=== PATIENT | female | born 1970 | race Caucasian/White ===

== ENCOUNTER 2017-01-02 19:38 | Emergency (ER) | payer OTHER, MEDICAID ==
[~2017-01-02] VITALS: Ht 167.6 cm; Wt 73.0 kg
[~2017-01-02 19:38] MED LIST: INSU100C SC; LANT3I SC; MECL25TA2 PO
[2017-01-02 20:33] VITALS: Ht 167.6 cm; Wt 73.0 kg
[2017-01-02 22:38] LABS: BASOPHILS % 0.3 % (0.0-2.0); EOSINOPHILS # 0.1 10^3/ul (0.0-0.5); EOSINOPHILS % 1.2 % (0.0-7.0); HEMATOCRIT 35.4 % (37.0-47.0); HEMOGLOBIN 11.9 g/dl (12.0-16.0); LYMPHOCYTES # 2.3 10^3/ul (0.8-2.9); LYMPHOCYTES % 31.2 % (15.0-51.0); MEAN CORPUSCULAR HEMOGLOBIN 28.9 pg (29.0-33.0); MEAN CORPUSCULAR HGB CONC 33.6 g/dl (32.0-37.0); MEAN CORPUSCULAR VOLUME 85.9 fl (82.0-101.0); MEAN PLATELET VOLUME 10.3 fl (7.4-10.4); MONOCYTE # 0.6 10^3/ul (0.3-0.9); MONOCYTES % 8.7 % (0.0-11.0); NEUTROPHIL # 4.2 10^3/ul (1.6-7.5); NEUTROPHILS % 58.5 % (39.0-77.0); PLATELET COUNT 300 10^3/UL (140-415); RED BLOOD COUNT 4.12 10^6/ul (4.20-5.40); RED CELL DISTRIBUTION WIDTH 13.6 % (11.5-14.5); WHITE BLOOD COUNT 7.2 10^3/ul (4.8-10.8)
[2017-01-02] MEDS ORDERED: IBUPROFEN 600 MG TAB PO ONE (23:00)
[2017-01-02 23:01] LABS: ADD UMIC NO; UR ASCORBIC ACID NEGATIVE (NEGATIVE); UR BILIRUBIN (Dip) NEGATIVE (NEGATIVE); UR BLOOD (Dip) NEGATIVE (NEGATIVE); UR CLARITY CLEAR (CLEAR); UR COLOR COLORLESS (YELLOW); UR GLUCOSE (Dip) 3+ mg/dL (NEGATIVE); UR KETONES (Dip) NEGATIVE (NEGATIVE); UR LEUKOCYTE ESTERASE (Dip) NEGATIVE Leu/ul (NEGATIVE); UR NITRITE (Dip) NEGATIVE (NEGATIVE); UR SPECIFIC GRAVITY (Dip) 1.017 (1.003-1.030); UR TOTAL PROTEIN (Dip) NEGATIVE (NEGATIVE); UR UROBILINOGEN (Dip) NEGATIVE (NEGATIVE)
[2017-01-02 23:03] LABS: ALBUMIN 3.8 g/dl (3.3-4.9); ALBUMIN/GLOBULIN RATIO 1.15; BILIRUBIN,INDIRECT 0.3 mg/dl (0-1.1); BILIRUBIN,TOTAL 0.3 mg/dl (0.2-1.3); CALCIUM 9.4 mg/dl (8.4-10.2); CREATININE 0.71 mg/dl (0.44-1.00); POTASSIUM 3.8 mmol/L (3.5-5.1); TOTAL PROTEIN 7.1 g/dl (6.1-8.1)
[2017-01-02] MEDS ORDERED: SOD CHLORIDE 0.9% 1,000 ML IV ONE (23:30)
[2017-01-03 01:15] VITALS: BP 144/80; PULSE 80; RESP 16
--- NOTE | 2017-01-03 01:28 | ERD ---
ER Documentation Chief Complaint Date/Time DATE: 01/03/17 TIME: 01:27 Chief Complaint weakness x 3 days, intermittent ROSEN today. Denies other symptoms HPI Patient is a 46-year-old female past medical history of insulin-dependent diabetes type 2, Presenting to the emergency department with complaints of weakness intermittently for the past 3 days. Associated symptoms include headache when she is to experience today. She also feels dizziness which lasts approximately 2 minutes and then spontaneously resolves. She has had history of the same in the past. She denies nausea, vomiting, diarrhea, chest pain, fevers, shortness of breath, or other symptoms currently. ROS All systems reviewed and are negative except as per history of present illness. Medications Home Meds Active Scripts Meclizine Hcl* (Antivert*) 25 Mg Tablet, 25 MG PO Q6H Y for dizziness, #20 TAB Prov:ALBER PADRON PA-C 04/14/15 Reported Medications Insulin Glargine* (Lantus*) 100 Unit/Ml Soln, 30 UNIT SC BID, EA 12/17/13 Insulin Lispro (Humalog) 100 U/Ml Cartridge, 17 UNITS SC TID, EA 12/17/13 Allergies Allergies: Coded Allergies: No Known Allergy (Verified , 04/14/15) PMhx/Soc History of Surgery: Yes (eye surgery, ) Anesthesia Reaction: No Hx Neurological Disorder: No Hx Respiratory Disorders: No Hx Cardiac Disorders: No Hx Psychiatric Problems: No Hx Miscellaneous Medical Probl: Yes (DM) Hx Alcohol Use: No Hx Substance Use: No Hx Tobacco Use: No Smoking Status: Never smoker Physical Exam Vitals Vital Signs Date Time Temp Pulse Resp B/P Pulse Ox O2 Delivery O2 Flow Rate FiO2 01/03/17 01:15 80 16 144/80 97 Room Air 01/02/17 20:33 99.1 102 18 148/82 98 Physical Exam Const: Nontoxic, well-appearing female in no acute distress. Head: Atraumatic Eyes: Normal Conjunctiva ENT: Normal External Ears, Nose and Mouth. Neck: Full range of motion..~ No meningismus. Resp: Clear to auscultation bilaterally Cardio: Regular rate and rhythm, no murmurs Abd: Soft, non tender, non distended. Normal bowel sounds Skin: No petechiae or rashes Back: No midline or flank tenderness Ext: No cyanosis, or edema Neur: Awake and alert Psych: Normal Mood and Affect Result Diagram: 01/02/17222501/02/172225 Results 24 hrs Laboratory Tests Test 01/02/17 22:26 01/02/17 22:39 01/03/17 00:38 White Blood Count 7.210^3/ul Red Blood Count 4.1210^6/ul Hemoglobin 11.9g/dl Hematocrit 35.4% Mean Corpuscular Volume 85.9fl Mean Corpuscular Hemoglobin 28.9pg Mean Corpuscular Hemoglobin Concent 33.6g/dl Red Cell Distribution Width 13.6% Platelet Count 01008^3/UL Mean Platelet Volume 10.3fl Neutrophils % 58.5% Lymphocytes % 31.2% Monocytes % 8.7% Eosinophils % 1.2% Basophils % 0.3% Nucleated Red Blood Cells % 0.0/100WBC Neutrophils # 4.210^3/ul Lymphocytes # 2.310^3/ul Monocytes # 0.610^3/ul Eosinophils # 0.110^3/ul Basophils # 0.010^3/ul Nucleated Red Blood Cells # 0.010^3/ul Sodium Level 132mmol/L Potassium Level 3.8mmol/L Chloride Level 97mmol/L Carbon Dioxide Level 27mmol/L Anion Gap 12 Blood Urea Nitrogen 18mg/dl Creatinine 0.71mg/dl Glucose Level 433mg/dl Calcium Level 9.4mg/dl Total Bilirubin 0.3mg/dl Direct Bilirubin 0.00mg/dl Indirect Bilirubin 0.3mg/dl Aspartate Amino Transf (AST/SGOT) 20IU/L Alanine Aminotransferase (ALT/SGPT) 33IU/L Alkaline Phosphatase 85IU/L Total Protein 7.1g/dl Albumin 3.8g/dl Globulin 3.30g/dl Albumin/Globulin Ratio 1.15 Urine Color COLORLESS Urine Clarity CLEAR Urine pH 6.0 Urine Specific [place] 1.017 Urine Ketones NEGATIVEmg/dL Urine Nitrite NEGATIVEmg/dL Urine Bilirubin NEGATIVEmg/dL Urine Urobilinogen NEGATIVEmg/dL Urine Leukocyte Esterase NEGATIVELeu/ul Urine Hemoglobin NEGATIVEmg/dL Urine Glucose 3+mg/dL Urine Total Protein NEGATIVEmg/dl Bedside Glucose 315mg/dL Current Medications Medications (Trade) Dose Ordered Sig/Clarice Route PRN Reason Start Time Stop Time Status Last Admin Dose Admin Ibuprofen 600 mg 600 mg ONCE ONCE PO 01/02/17 23:00 01/02/17 23:01 DC 01/02/17 22:52 Sodium Chloride (NS) 1,000 ml @ 1,000 mls/hr Q1H ONCE IV 01/02/17 23:30 01/03/17 00:29 DC 01/02/17 23:56 Procedures/MDM 46-year-old female presenting to the emergency department with complaints of weakness. Patient has had similar symptoms in the past. She denies any chest pain, shortness of breath, fevers, chills, or other symptoms currently. CBC showed no signs of leukocytosis or significant anemia. Chemistry panel was within normal limits except for a glucose of 433, the patient is a type II diabetic and she took her insulin just before coming into the emergency department. No signs of diabetic ketoacidosis on chemistry panel. Urinalysis did show 3+ glucose but no ketones, leukocytes, nitrites, bilirubin, or protein. The patient was given 1 L normal saline for her hyperglycemia and it reduced to 315. At that time I felt the patient was stable for discharge and outpatient management of her symptoms. She is feeling much improved prior to discharge. Low suspicion for life-threatening illness at time of discharge. She is to have close follow-up with her primary care physician within the next 1 -2 days. She is to return immediately for any new or worsening symptoms. Departure Diagnosis: Primary Impression: Weakness Condition: Fair Patient Instructions: Generalized Weakness Referrals: [facility] Usted se rosen hecho un examen mdico de control que le indica que no est en nelly condicin que requiera tratamiento urgente en el Departamento de Emergencia. Un estudio ms profundo y el tratamiento de mendoza condicin pueden esperar sin ningn riesgo hasta que usted sea atendida/o en el consultorio de mendoza mdico o nelly cl antonio. Es responsabilidad suya arreglar nelly brian para el seguimiento del sendy. MANEJO DE CONDICIONES NO URGENTES EN EL FUTURO 1) Si usted tiene un mdico de atencin primaria: Usted debera llamar a mendoza mdico de atencin primaria antes de venir al departamento de emergencia. Despus de las horas de consultorio, mendoza doctor o mendoza asociado/a est disponible por telfono. El mdico o enfermero de zhane en el servicio telefnico puede asesorarle por veto medio para atender el problema, o sendy contrario se puede programar nelly brian. 2) Si usted no tiene un mdico de atencin primaria: Llame al mdico o clnica de referencia que aparece abajo mckinley las horas de consultorio para hacer nelly brian para que le vean. CLINICAS: [place] [phone] [facility] [phone] [place] [address] [phone] [place] [address] [phone] [facility] [place] [address] [phone] [facility] [phone] [address] Additional Instructions: No mas mejor en 2-3 reilly, regresar. Mas peor en 24 horas, regresear rapidamente. Ir a doctor primario in 5-7 reilly. Usar instrucciones cuando anand medicamento. CHANTE ROJAS PA-C Jan 03, 2017 01:27
== END 2017-01-03 01:17 | disposition home or self-care (01) ==
LOC: FTE 19:38
DX: R53.1 Weakness (principal); E11.9 Type 2 diabetes mellitus without complications; Z79.4 Long term (current) use of insulin
CPT/HCPCS: 36415; 80053; 81003; 82962; 85025; 99284; J7030

== ENCOUNTER 2018-11-04 17:59 | Emergency (ER) | payer OTHER, MEDICAID ==
[~2018-11-04] VITALS: Ht 160 cm; Wt 68.8 kg
[~2018-11-04 17:59] MED LIST changes: +CEPH-443 PO; +SULF1TAB31 PO
[2018-11-04 18:10] VITALS: Ht 160 cm; Wt 68.8 kg
--- NOTE | 2018-11-04 21:24 | ERD ---
ER Documentation Chief Complaint Chief Complaint lt ankle /foot pain x 1 hr HPI 48-year-old female with history of diabetes presents for left ankle and foot pain x1 hour. She states that the pain is 7 out of 10, described as a dull sensation, worse with movement. Took some Tylenol with mild relief. States that the pain happens spontaneously. There is no history of trauma. ROS All systems reviewed and are negative except as per history of present illness. Medications Home Meds Active Scripts Cephalexin* (Keflex*) 500 Mg Capsule, 500 MG PO TID for foot infection for 7 Days, #21 CAP Prov:OUMAR CHRISTOPHER 11/04/18 Sulfamethoxazole/Trimethoprim* (Bactrim Ds* Tablet) 1 Each Tablet, 1 TAB PO BID for foot infection for 7 Days, #14 TAB Prov:OUMAR CHRISTOPHER 11/04/18 Meclizine Hcl* (Antivert*) 25 Mg Tablet, 25 MG PO Q6H PRN for dizziness, #20 TAB Prov:ALBER PADRON PA-C 04/14/15 Reported Medications Insulin Glargine* (Lantus*) 100 Unit/Ml Soln, 30 UNIT SC BID, EA 12/17/13 Insulin Lispro (Humalog) 100 U/Ml Cartridge, 17 UNITS SC TID, EA 12/17/13 Allergies Allergies: Coded Allergies: No Known Allergy (Verified , 04/14/15) PMhx/Soc History of Surgery: Yes (eye surgery, ) Anesthesia Reaction: No Hx Neurological Disorder: No Hx Respiratory Disorders: No Hx Cardiac Disorders: No Hx Psychiatric Problems: No Hx Miscellaneous Medical Probl: Yes (DM) Hx Alcohol Use: No Hx Substance Use: No Hx Tobacco Use: No FmHx Family History: No coronary disease Physical Exam Vitals Vital Signs Date Temp Pulse Resp B/P (MAP) Pulse Ox O2 O2 Flow FiO2 Time Delivery Rate 11/04/18 98.8 97 18 168/76 97 18:10 (106) Repeat blood pressure 156/78 Physical Exam Const: No acute distress Resp: Clear to auscultation bilaterally Cardio: Regular rate and rhythm, no murmurs Skin: No petechiae or rashes Back: No midline or flank tenderness Neur: Awake and alert Psych: Normal Mood and Affect Lower Extremity left: Skin: No laceration, there is some erythema and increased warmth noted over the left foot and ankle Compartments: Soft Motor: Full active range of motion hip/knee/decreased range of motion of the left ankle and foot Sensation: Intact to light touch FDWS/MF/LF/P surfaces. Bones: Nontender pelvis/knee/proximal tibia/there is some tenderness palpation of the left foot and ankle Joints: Some swelling noted over the left ankle and foot Pulses/Perfusion: 2+ DP, Capillary refill < 2 seconds Procedures/MDM Medical Decision Making: Differential diagnosis includes but not limited to fracture, dislocation, muscle strain, ligamentous sprain, septic joint, osteomyelitis, gout, Charcot foot, cellulitis Patient appeared well on physical exam. There was tenderness over the left foot and ankle Patient was neurovascularly intact Patient denies fever, no recent infection, low suspicion for septic joint or osteomyelitis. ED course: Imaging: X-ray left foot 3V Interpreted by me: Bones: No fracture, bony architecture appears to be normal Joints: No dislocation Foreign body: None. X-ray left ankle 3V Interpreted by me: Bones: No fracture Joints: No dislocation Foreign Body: None Examination consistent with a left foot cellulitis Prescription(s): Patient given prescription for supportive medication(s) and antibiotics. Patient advised to follow up with PCP in 1-2 days. Patient advised to return to ED for new or worsening symptoms. Patient stable on discharge from the ED. Disclaimer: Inadvertent spelling and grammatical errors are likely due to EHR/dictation software use and do not reflect on the overall quality of patient care. Also, please note that the electronic time recorded on this note does not necessarily reflect the actual time of the patient encounter. Departure Diagnosis: Primary Impression: Cellulitis of foot Condition: Fair Patient Instructions: Cellulitis Referrals: [facility] YOU HAVE RECEIVED A MEDICAL SCREENING EXAM AND THE RESULTS INDICATE THAT YOU DO NOT HAVE A CONDITION THAT REQUIRES URGENT TREATMENT IN THE EMERGENCY DEPARTMENT. FURTHER EVALUATION AND TREATMENT OF YOUR CONDITION CAN WAIT UNTIL YOU ARE SEEN IN YOUR DOCTORS OFFICE WITHIN THE NEXT 1-2 DAYS. IT IS YOUR RESPONSIBILITY TO MAKE AN APPOINTMENT FOR FOLOW-UP CARE. IF YOU HAVE A PRIMARY DOCTOR --you should call your primary doctor and schedule an appointment IF YOU DO NOT HAVE A PRIMARY DOCTOR YOU CAN CALL OUR PHYSICIAN REFERRAL HOTLINE AT IF YOU CAN NOT AFFORD TO SEE A PHYSICIAN YOU CAN CHOSE FROM THE FOLLOWING [facility] [address] [facility] [address] [facility] [address] [facility] [address] [facility]. [facility] [phone] [facility]. [facility] [address] Additional Instructions: Llame al doctor MAANA y bishop nelly ASIA PARA DENTRO DE 1-2 CARLSON.Dgale a la secretaria que nosotros le instruimos hacer esta asia.Avise o llame si mendoza condicin se empeora antes de la asia. Regresa aqui si peor o no mejor. OUMAR CHRISTOPHER DO Nov 04, 2018 21:24
[2018-11-04 21:48] VITALS: BP 156/78; PULSE 78; RESP 16
== END 2018-11-04 21:49 | disposition home or self-care (01) ==
LOC: FTE 17:59
DX: L03.116 Cellulitis of left lower limb (principal); E11.9 Type 2 diabetes mellitus without complications; Z79.4 Long term (current) use of insulin
CPT/HCPCS: 73610